=== PATIENT | male | born 1945 | race Caucasian/White ===

== ENCOUNTER 2023-09-30 16:06 | Emergency (ER) | payer MEDICARE ==
[~2023-09-30] VITALS: Ht 180.3 cm; Wt 117.9 kg
[2023-09-30] MEDS ORDERED: HYDROMORPHONE 1 MG/1 ML DISP.SYRIN ONE ×2 (16:45→17:55)
[2023-09-30] MEDS: HYDROMORPHONE 1 MG/1 ML DISP.SYRIN IM ONE ×2 (16:56→18:06)
[2023-09-30] MEDS ORDERED: LIDOCAINE 5% PATCH TD ONE (17:06)
[2023-09-30] MEDS: LIDOCAINE 5% PATCH TD ONE (17:15)
[2023-09-30] MEDS ORDERED: LIDO30AD10 TP (17:50)
[2023-09-30] MEDS ORDERED: HYDR4TAB4 PO (17:50)
[2023-09-30 18:55] VITALS: BP 142/79; TEMP 98.2; O2SAT 97
== END 2023-09-30 18:56 | disposition home or self-care (01) ==
LOC: ER 16:08
DX: S20.211A Contusion of right front wall of thorax, initial encounter (principal); E11.22 Type 2 diabetes mellitus with diabetic chronic kidney disease; E78.5 Hyperlipidemia, unspecified; K21.9 Gastro-esophageal reflux disease without esophagitis; W22.8XXA Striking against or struck by other objects, initial encounter; Y93.89 Activity, other specified; Y92.89 Other specified places as the place of occurrence of the external cause; Y99.8 Other external cause status
CPT/HCPCS: 99284; 71101; 96372 ×2; J1170 ×2; A4606; A4663

== ENCOUNTER 2024-02-13 11:29 | Inpatient (IN) | payer MEDICARE ==
[~2024-02-13] VITALS: Ht 175.3 cm; Wt 99.8 kg
[2024-02-13] VITALS (7 sets, daily range): BP systolic 133–149; BP diastolic 48–59; TEMP 98.3–98.6; O2SAT 92–100
[~2024-02-13 11:29] MED LIST: HYDR4TAB4 PO; LIDO30AD10 TP
[2024-02-13 11:59] LABS: BASOPHILS % (AUTO) 0.3 % (0.0-2.0); EOSINOPHILS # (AUTO) 0.1 K/uL (0.0-0.7); HEMATOCRIT 34.1 % (36.7-47.1); HEMOGLOBIN 10.9 g/dL (12.5-16.3); LYMPHOCYTES # (AUTO) 1.3 K/uL (0.8-4.8); MEAN CORPUSCULAR HEMOGLOBIN 30.6 uug (23.8-33.4); MEAN CORPUSCULAR HGB CONC 32 g/dL (32.5-36.3); MEAN CORPUSCULAR VOLUME 95.9 fL (73.0-96.2); MONOCYTES # (AUTO) 0.7 K/uL (0.1-1.30); MONOCYTES % (AUTO) 7.9 % (0.0-11.0); NEUTROPHILS % (AUTO) 76.8 % (38.5-71.5); PLATELET COUNT (AUTO) 223 K/uL (152-348); RED BLOOD CELL COUNT(AUTO) 3.56 MIL/uL (4.06-5.63); WHITE BLOOD COUNT (AUTO) 9.1 K/uL (3.6-10.2)
[2024-02-13 12:10] LABS: CALCIUM 10.7 mg/dL (8.5-10.1); CARBON DIOXIDE 25 mmol/L (21-32); CHLORIDE 105 mmol/L (98-107); CREATININE 4.3 mg/dL (0.6-1.3); GLUCOSE 107 mg/dL (74-106); POTASSIUM 5.9 mmol/L (3.5-5.1); SODIUM SERUM 143 mmol/L (136-145); UREA NITROGEN, BLOOD 49 mg/dL (7-18)
[2024-02-13 12:10] LABS: ABG BASE EXCESS 4.8 mmol/L (-2.0-3.0); ABG HCO3 21.7 mmol/L (21.0-28.0); ABG PCO2 15.4 mmHg (35.0-48.0); ABG PH > 7.711 (7.350-7.450); ABG PO2 111.1 mmHg (83.0-108.0); ABG SITE RIGHT RADIAL; ABG TOTAL HEMOGLOBIN 11.5 G/dL (13.5-17.5); AaDO2 99.1 mmHg; COHb 0.7 % (0.5-1.5); MetHb 0.1 % (0.0-1.5); O2Hb 98.2 % (94.0-98.0)
[2024-02-13 12:12] LABS: DIFFERENTIAL COMMENT 1
[2024-02-13 12:23] LABS: ALANINE AMINOTRANSFERASE 33 U/L (16-63); ALBUMIN 2.7 g/dL (3.4-5.0); ALKALINE PHOSPHATASE 85 U/L (50-136); ASPARTATE AMINOTRANSFERASE 49 U/L (15-37); BILIRUBIN,DIRECT 0.2 mg/dL (0.0-0.2); BILIRUBIN,TOTAL 0.6 mg/dL (0.2-1.0); NT-PRO BNP 8336 pg/mL (0-125); TOTAL PROTEIN, SERUM 6.3 g/dL (6.4-8.2)
[2024-02-13 12:29] LABS: LACTIC ACID 3.3 mmol/L (0.4-2.0)
[2024-02-13] MEDS ORDERED: ONDANSETRON 4 MG/2 ML VIAL ONE (12:47)
[2024-02-13] MEDS ORDERED: MORPHINE SULFATE 4 MG/1 ML DISP.SYRIN ONE (12:48)
[2024-02-13] MEDS: ONDANSETRON 4 MG/2 ML VIAL IV ONE (12:53)
[2024-02-13] MEDS: MORPHINE SULFATE 4 MG/1 ML DISP.SYRIN IV ONE (12:53)
[2024-02-13] MEDS ORDERED: levoFLOXacin 250MG /D5W 50 ML IV ONE (12:54)
[2024-02-13] MEDS: LORAZEPAM 2 MG/1 ML VIAL IV ONE (13:15)
[2024-02-13] MEDS ORDERED: ALBUTEROL SULFATE 2.5 MG/3 ML NEBU ONE (13:22)
[2024-02-13] MEDS ORDERED: ALBUTEROL SULFATE 2.5 MG/ 0.5 ML NEBU ONE (13:22)
[2024-02-13] MEDS ORDERED: DEXTROSE 50% 50 ML DISP.SYRIN ONE (13:26)
[2024-02-13] MEDS ORDERED: SODIUM BICARBONATE 8.4% 50 MEQ/50 ML DISP.SYRIN IV ONE (13:27)
[2024-02-13] MEDS ORDERED: SODIUM POLYSTYRENE SULFONATE 15 G/60 ML LIQUID UDC ONE (13:27)
[2024-02-13] MEDS: SODIUM POLYSTYRENE SULFONATE 15 G/60 ML LIQUID UDC PO ONE (13:29)
[2024-02-13] MEDS: SODIUM BICARBONATE 8.4% 50 MEQ/50 ML DISP.SYRIN IV ONE (13:29)
[2024-02-13] MEDS ORDERED: INSULIN REGULAR, HUMAN 1000 UNIT/10 ML VIAL ONE (13:29)
[2024-02-13] MEDS: ALBUTEROL SULFATE 2.5 MG/3 ML NEBU NEB ONE (13:31)
[2024-02-13] MEDS: DEXTROSE 50% 50 ML DISP.SYRIN IV ONE (13:52)
[2024-02-13] MEDS: INSULIN REGULAR, HUMAN 1000 UNIT/10 ML VIAL IV ONE (13:55)
[2024-02-13] MEDS ORDERED: LORAZEPAM 2 MG/1 ML VIAL ONE (14:05)
[2024-02-13] MEDS ORDERED: REMEDY ESSENTIAL ZINC PASTE 113 GM TP PRN (16:30)
[2024-02-13] MEDS ORDERED: MAGNESIUM HYDROXIDE 30 ML LIQUID UDC PO PRN (16:30)
[2024-02-13] MEDS ORDERED: ONDANSETRON 4 MG/2 ML VIAL IV PRN (16:30)
[2024-02-13] MEDS: CEFTRIAXONE 1 G in IV DEXTROSE 5% 50 ML IV SCH (16:30)
[2024-02-13] MEDS ORDERED: ACETAMINOPHEN 325 MG TABLET PO PRN (16:30)
[2024-02-13] MEDS ORDERED: CEFTRIAXONE /D5W 50ML IVPB **ER PYXIS IV ONE (16:30)
[2024-02-13] MEDS ORDERED: CALC0.253 PO (17:49)
[2024-02-13] MEDS ORDERED: ACID1CAP3 PO (17:49)
[2024-02-13] MEDS ORDERED: FURO20TA4 PO (17:49)
[2024-02-13] MEDS ORDERED: SEVE800T8 PO (17:49)
[2024-02-13] MEDS ORDERED: APIX5TAB PO (17:49)
[2024-02-13] MEDS ORDERED: ALLO100T PO (17:49)
[2024-02-13] MEDS ORDERED: ATOR80TA PO (17:49)
[2024-02-13] MEDS ORDERED: FENO145T21 PO (17:49)
[2024-02-13] MEDS ORDERED: GABA-532 PO (17:49)
[2024-02-13] MEDS ORDERED: FOLI0.8T2 PO (17:49)
[2024-02-13] MEDS ORDERED: CYAN100085 PO (17:49)
[2024-02-13] MEDS ORDERED: NIFE-35 PO (17:49)
[2024-02-13] MEDS ORDERED: OMEP40CA21 PO (17:49)
[2024-02-13] MEDS ORDERED: LEVO100T10 PO (17:49)
[2024-02-13] MEDS ORDERED: HYDROCODONE/APAP 10-325 MG TABLET PO PRN (19:15)
[2024-02-13] MEDS: VANCOMYCIN HCL 1,500 MG in IV DEXTROSE 5% 500 ML IV ONE (19:19)
[2024-02-13 19:30] LABS: CALCIUM 9.4 mg/dL (8.5-10.1); CARBON DIOXIDE 29 mmol/L (21-32); CHLORIDE 105 mmol/L (98-107); CREATININE 4.3 mg/dL (0.6-1.3); GLUCOSE 191 mg/dL (74-106); POTASSIUM 4.3 mmol/L (3.5-5.1); SODIUM SERUM 141 mmol/L (136-145); UREA NITROGEN, BLOOD 57 mg/dL (7-18)
[2024-02-14] VITALS (10 sets, daily range): BP systolic 148–252; BP diastolic 43–89; TEMP 97.4–99.4; O2SAT 95–100
[2024-02-14] MEDS: LEVOTHYROXINE SODIUM 100 MCG TABLET PO SCH (06:13)
[2024-02-14] MEDS: PANTOPRAZOLE SODIUM 40 MG TABLET.DR PO SCH (06:13)
[2024-02-14 07:22] LABS: EOSINOPHILS % (AUTO) 0.9 % (0.0-7.0); HEMATOCRIT 28.4 % (36.7-47.1); HEMOGLOBIN 9.4 g/dL (12.5-16.3); LYMPHOCYTES % (AUTO) 11.9 % (20.5-51.5); MEAN CORPUSCULAR HEMOGLOBIN 31.8 uug (23.8-33.4); MEAN CORPUSCULAR HGB CONC 33 g/dL (32.5-36.3); MEAN CORPUSCULAR VOLUME 95.8 fL (73.0-96.2); MONOCYTES % (AUTO) 8.3 % (0.0-11.0); NEUTROPHILS % (AUTO) 78.5 % (38.5-71.5); PLATELET COUNT (AUTO) 172 K/uL (152-348); RED BLOOD CELL COUNT(AUTO) 2.96 MIL/uL (4.06-5.63); RED CELL DISTRIBUTION WIDTH 19.3 % (12.1-16.2)
[2024-02-14 07:23] LABS: BASOPHILS % (AUTO) 0.4 % (0.0-2.0); EOSINOPHILS # (AUTO) 0.1 K/uL (0.0-0.7); LYMPHOCYTES # (AUTO) 1.1 K/uL (0.8-4.8); MONOCYTES # (AUTO) 0.7 K/uL (0.1-1.30); NEUTROPHILS # (AUTO) 7.1 K/uL (1.8-8.9)
[2024-02-14 08:04] LABS: SODIUM SERUM 141 mmol/L (136-145)
[2024-02-14 08:05] LABS: CALCIUM 9.8 mg/dL (8.5-10.1); CARBON DIOXIDE 30 mmol/L (21-32); CHLORIDE 106 mmol/L (98-107); CREATININE 4.7 mg/dL (0.6-1.3); GLUCOSE 94 mg/dL (74-106); MAGNESIUM 2.1 mg/dL (1.8-2.4); PHOSPHOROUS 4.3 mg/dL (2.5-4.9); POTASSIUM 4.6 mmol/L (3.5-5.1); UREA NITROGEN, BLOOD 62 mg/dL (7-18)
[2024-02-14] MEDS: CULTURELLE CAPSULE PO SCH (08:26)
[2024-02-14] MEDS: FOLIC ACID/VITAMIN B COMP W-C TABLET PO SCH (08:26)
[2024-02-14] MEDS: CYANOCOBALAMIN 1,000 MCG TABLET PO SCH (08:27)
[2024-02-14] MEDS: CALCITRIOL 0.25 MCG CAPSULE PO SCH (08:28)
[2024-02-14] MEDS: APIXABAN 5 MG TABLET PO SCH (08:30)
[2024-02-14] MEDS: ALLOPURINOL 100 MG TABLET PO SCH (09:00)
[2024-02-14] MEDS ORDERED: ALLOPURINOL 100 MG TABLET PO SCH (09:00)
[2024-02-14] MEDS ORDERED: LIDOCAINE 5% PATCH TD SCH ×2 (09:00)
[2024-02-14] MEDS ORDERED: NIFEdipine XL 30 MG TABSR PO SCH (09:00)
[2024-02-14] MEDS ORDERED: FENOFIBRATE NANOCRYSTALLIZED 145 MG TABLET PO SCH (09:00)
[2024-02-14] MEDS ORDERED: NIFEdipine XL 60 MG TABSR PO SCH (09:00)
[2024-02-14] MEDS ORDERED: SEVELAMER CARBONATE 800 MG TABLET PO SCH (09:00)
[2024-02-14] MEDS ORDERED: GABAPENTIN 100 MG CAPSULE PO SCH (09:00)
[2024-02-14] MEDS ORDERED: VANCOMYCIN IV 500 MG in IV DEXTROSE 5% 100 ML IV PRN (10:00)
[2024-02-14] MEDS ORDERED: FERR-68 PO (12:57)
[2024-02-14] MEDS ORDERED: HYDR100T27 PO (13:07)
[2024-02-14 15:57] LABS: *BILIRUBIN,URIN NEGATIVE (NEGATIVE); *CLARITY,URINE CLEAR (CLEAR); *COLOR,URINE YELLOW (YELLOW); *KETONES,URINE NEGATIVE (NEGATIVE); *PROTEIN,URINE 2+ (NEGATIVE); *UROBILINOGEN,URINE 0.2 E.U./dl (NORMAL); LEUKOCYTE ESTERASE ,URINE TRACE (NEGATIVE); NITRITE, URINE NEGATIVE (NEGATIVE); UGLUCOSE NEGATIVE (NEGATIVE)
[2024-02-14 16:01] LABS: *BLOOD, URINE TRACE (NEGATIVE); BACTERIA,URINE FEW /HPF (NONE SEEN); WBC,URINE 20-50 /HPF (0-3)
[2024-02-14] MEDS: SEVELAMER CARBONATE 800 MG TABLET PO SCH (17:33)
[2024-02-14] MEDS: NIFEdipine XL 60 MG TABSR PO SCH (17:33)
[2024-02-14] MEDS: CEFTRIAXONE 2 G in IV DEXTROSE 5% 100 ML IV SCH (17:36)
[2024-02-14] MEDS: hydrALAZINE HCL 50 MG TABLET PO SCH (20:33)
[2024-02-14] MEDS: GABAPENTIN 100 MG CAPSULE PO SCH (20:33)
[2024-02-14] MEDS: ATORVASTATIN 40 MG TABLET PO SCH (20:34)
[2024-02-15] VITALS (8 sets, daily range): BP systolic 115–179; BP diastolic 37–70; TEMP 98–99.2; O2SAT 95–100
[2024-02-15 06:58] LABS: BASOPHILS # (AUTO) 0.1 K/UL (0.0-0.2); BASOPHILS % (AUTO) 1.2 % (0.0-2.0); EOSINOPHILS # (AUTO) 0.1 K/uL (0.0-0.7); EOSINOPHILS % (AUTO) 1.2 % (0.0-7.0); HEMATOCRIT 31.3 % (36.7-47.1); HEMOGLOBIN 10.2 g/dL (12.5-16.3); LYMPHOCYTES # (AUTO) 1.1 K/uL (0.8-4.8); LYMPHOCYTES % (AUTO) 12.8 % (20.5-51.5); MEAN CORPUSCULAR HEMOGLOBIN 31.1 uug (23.8-33.4); MEAN CORPUSCULAR HGB CONC 33 g/dL (32.5-36.3); MEAN CORPUSCULAR VOLUME 95.6 fL (73.0-96.2); MONOCYTES # (AUTO) 0.6 K/uL (0.1-1.30); NEUTROPHILS # (AUTO) 6.5 K/uL (1.8-8.9); NEUTROPHILS % (AUTO) 77.8 % (38.5-71.5); PLATELET COUNT (AUTO) 182 K/uL (152-348); RED BLOOD CELL COUNT(AUTO) 3.27 MIL/uL (4.06-5.63); RED CELL DISTRIBUTION WIDTH 19.8 % (12.1-16.2); WHITE BLOOD COUNT (AUTO) 8.4 K/uL (3.6-10.2)
[2024-02-15 07:08] LABS: DIFFERENTIAL COMMENT 1
[2024-02-15 07:09] LABS: CALCIUM 10.2 mg/dL (8.5-10.1); CARBON DIOXIDE 26 mmol/L (21-32); CHLORIDE 105 mmol/L (98-107); CREATININE 4.9 mg/dL (0.6-1.3); GLUCOSE 102 mg/dL (74-106); POTASSIUM 4.5 mmol/L (3.5-5.1); SODIUM SERUM 139 mmol/L (136-145); UREA NITROGEN, BLOOD 70 mg/dL (7-18)
[2024-02-15] MEDS: VANCOMYCIN IV 1,000 MG in IV DEXTROSE 5% 250 ML IV ONE (14:54)
[2024-02-16] VITALS: BP 137/47; TEMP 98.1; O2SAT 98
[2024-02-16 05:12] LABS: HEPATITIS B SURFACE AB, QUAL Non Reactive (.); HEPATITIS B SURFACE AG Negative (Negative)
[2024-02-16 06:00] VITALS: BP 149/40; TEMP 98.3; O2SAT 100
[2024-02-16 07:34] VITALS: BP 159/45; TEMP 98.2; O2SAT 96
[2024-02-16] MEDS: FERROUS SULFATE 325 MG TABEC PO SCH (08:49)
[2024-02-16 11:51] VITALS: BP 152/55; TEMP 98; O2SAT 97
[2024-02-16] MEDS ORDERED: CEFT2FRO2 IV (11:57)
== END 2024-02-16 14:20 | DRG 308 ==
LOC: ER 11:29 → TELE3 17:36
PROVIDERS: ADMIT Nurse Practitioner Acute Care; ATTEND Nurse Practitioner Acute Care
PROC: 05HC33Z Insertion of Infusion Device into Left Basilic Vein, Percutaneous Approach (ICD-10-PCS; principal; 2024-02-14)
PROC: 5A1D70Z Performance of Urinary Filtration, Intermittent, Less than 6 Hours Per Day (ICD-10-PCS; 2024-02-15)
DX: I49.8 Other specified cardiac arrhythmias (principal); I50.33 Acute on chronic diastolic (congestive) heart failure; N18.6 End stage renal disease; I13.2 Hypertensive heart and chronic kidney disease with heart failure and with stage 5 chronic kidney disease, or end stage renal disease; E87.20 Acidosis, unspecified; E44.0 Moderate protein-calorie malnutrition; N39.0 Urinary tract infection, site not specified; I95.1 Orthostatic hypotension; Z99.2 Dependence on renal dialysis; E66.9 Obesity, unspecified; Z68.32 Body mass index [BMI] 32.0-32.9, adult; E88.09 Other disorders of plasma-protein metabolism, not elsewhere classified; Z85.47 Personal history of malignant neoplasm of testis; Z79.899 Other long term (current) drug therapy; E89.0 Postprocedural hypothyroidism; Z86.73 Personal history of transient ischemic attack (TIA), and cerebral infarction without residual deficits; E87.5 Hyperkalemia; I44.1 Atrioventricular block, second degree; H54.61 Unqualified visual loss, right eye, normal vision left eye; Z79.01 Long term (current) use of anticoagulants; Z95.2 Presence of prosthetic heart valve; Z87.440 Personal history of urinary (tract) infections; I48.0 Paroxysmal atrial fibrillation; E11.22 Type 2 diabetes mellitus with diabetic chronic kidney disease; E78.5 Hyperlipidemia, unspecified
CPT/HCPCS: 36415; 36600; 70450; 71045; 83605; 83735; 84100; 84484; 85025; 85730; 86706; 87040; 87340; 93307; 93880; 94760; A4606; A4663; G0378; J0696; J1815; J1956; J2060; J2270; J2405; J3370; J3371; J3490; J7040; J7050; J7060; J8499